=== PATIENT | male | born 2005 | race Caucasian/White ===

== ENCOUNTER 2024-07-25 23:23 | Emergency (ER) | payer SELFPAY ==
[2024-07-25 23:31] VITALS: BP 169/88; PULSE 122; RESP 18; TEMP 36.9; O2SAT 98; BMI 35.9
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
[2024-07-26] MEDS: tetanus-dipt-pertussis 0.5 mL SDV IM (00:16)
[2024-07-26] MEDS: HYDROmorphone 0.5 MG/0.5 ML INJ IVP (00:19)
[2024-07-26] MEDS: ondansetron 2 mg/ML SDV 2 mL 4 MG IVP (00:19)
[2024-07-26] MEDS: iohexol 350 mg/mL 500 mL Btl (per mL) IV (00:42)
[2024-07-26 00:51] VITALS: BP 158/89; PULSE 114; RESP 18; O2SAT 96
[2024-07-26] MEDS: sodium chloride 0.9% 1,000 ML 999 ML IV (01:04)
[2024-07-26 02:00] VITALS: BP 147/77; PULSE 98; RESP 16; O2SAT 94
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
[2024-07-26 02:47] VITALS: BP 125/70; PULSE 89; RESP 16; O2SAT 97
[2024-07-26] MEDS: lidocaine 1% 10 ML INJ INTRADERMA (03:31)
[2024-07-26] MEDS: cephALEXin 500 mg Capsule PO (03:32)
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
== END 2024-07-26 03:36 | disposition home or self-care (01) ==
PROVIDERS: Emergency Provider Nurse Practitioner
DX: S71.112A Laceration without foreign body, left thigh, initial encounter (principal); M25.561 Pain in right knee; X37.1XXA Tornado, initial encounter; Z23 Encounter for immunization; S30.811A Abrasion of abdominal wall, initial encounter
CPT/HCPCS: 12031; 29530; 70450; 71045; 71260; 72125; 72131; 73562; 74177; 90471; 90715; 96374; 96375; 99285; E0114; J1171; J2405; J7030; J9999

== ENCOUNTER → 2024-07-31 15:57 | Outpatient (BNVA) | payer SELFPAY | PROVIDERS: Visit Provider Orthopaedic Surgery | DX: M25.561 Pain in right knee (principal) | CPT/HCPCS: 73560; 73565 ==